=== PATIENT | male | born 1965 | race Caucasian/White ===

== ENCOUNTER → 2022-01-16 | Outpatient (CLI) | payer BC ==
[~2022-01-16] MED LIST: KEFLEX CAP 500500 MG PO; MOBIC7.5 MG PO; ZITHROMAX250 MG PO
== END ==
LOC: HEART 5 01-11 08:30
DX: R00.2 Palpitations (principal)

== ENCOUNTER 2022-01-27 18:47 | Emergency (ER) | payer BC ==
[2022-01-27 20:57] LABS: HEMOGLOBIN 13.4 gm/dl (14.0-17.5); RED BLOOD COUNT 4.43 M/UL (4.20-5.50); WHITE BLOOD COUNT 10.3 K/UL (4.5-11.0)
[2022-01-27 21:22] LABS: BUN/CREATININE RATIO 22 (0-10)
== END 2022-01-27 23:00 | disposition home or self-care (01) ==
LOC: ER1 18:47
PROVIDERS: Physician Assistant
DX: R10.9 Unspecified abdominal pain (principal); I10 Essential (primary) hypertension; Z87.442 Personal history of urinary calculi
CPT/HCPCS: 80053; 81001; 85025; 99284